=== PATIENT | female | born 1965 | race Caucasian/White ===

== ENCOUNTER 2020-10-22 18:31 | Emergency (ER) | payer MEDICARE, MEDICAID, SELFPAY ==
--- NOTE | 2020-10-22 18:43 | PC.NURSE ---
Pt arrived via EMS, cooperative w/ changeover at this time.
[2020-10-22 18:51] VITALS: BP 124/83; PULSE 84; RESP 18; TEMP 36.4; O2SAT 99; BMI 21.7
--- NOTE | 2020-10-22 20:40 | MHC.CARE ---
Addendum entered by Leticia Pedersen LCSW 10/22/20 21:13: outside machinist helper tool crib supervisor: [phone] Residential program: [phone] Addendum entered by Leticia Pedersen LCSW 10/22/20 21:11: Pt cleared for discharge. This freelance writer contacted tactical air control party manager tool crib supervisor re: transportation home. Staff unable to provide transportation at this time, however pt meets medical necessity for an ambulance transport. This freelance writer will contact [facility] with ETA once ambulance arrives for pt. Original Note: Pt is a 55 year old female who arrived by ambulance from [facility] residential [place] in [place] on a [address] [place] PD after pt called 911 endorsing passive thoughts of suicide and requesting that she be brought to the hospital. This freelance writer contacted interpretive program coordinator to inquire about pt's recent behavior and the events leading to her arriving to the ED. Annalise - tactical air control party manager tool crib supervisor for [facility] Per report, this is overall baseline behavior for pt. Often when upset pt will contact the police department to come speak with her. Pt also frequently makes statements such as I want to when she is upset or dysregulated. Prior to arrival today, pt was repeatedly asking residential home staff to bring her to the store for cigarettes. When able to, staff obliged and also took her for a short drive. Upon return, pt was reported to have asked for her PRN clonidine due to her continuing to feel upset, which was administered. Pt then called her family, which it was noted that the conversations can easily go either way with being positive or negative for the pt. On this particular evening, the conversation went poorly with both her mother and her brother, at which point pt called 911. Pt has no hx of suicide attempts, however does engage in self harm when she is dysregulated and upset (skin picking and hair pulling). Annalise did indicate that pt has seemed to be in her own head more lately, and pondered whether a change in medications should be considered. Pt is able to return to the program when she is deemed appropriate for discharge from the hospital. This freelance writer spoke with pt after her arrival to the ED. Pt reported that she was upset before she came to the hospital, however couldn't identify what made her upset. Pt confirmed that she contacted the PD and told them that she wanted to because she was upset, and that she wanted to go to the hospital. Pt is currently insisting that she doesn't want to be at the hospital anymore and wants to go back home. Pt denied feeling upset or having any thoughts of at this time, and denied thoughts of suicide. When asked about the small open areas on the back of her hand, pt stated that she scratches and picks her hand when she's upset. It is worth noting that the term upset has been used loosely during these conversations. This freelance writer spoke with ED provider re: information gathered from the residential home economist and the pt, with likely plan for pt to discharge from ED to return home.
[2020-10-22 21:02] VITALS: BP 127/81; PULSE 88; RESP 20; TEMP 36.3; O2SAT 97
--- NOTE | 2020-10-22 21:03 | ED_ITS ---
HPI - Psych General Chief Complaint: Psychiatric Symptoms Stated Complaint: SI,SECTION 12 Time Seen by Provider: 10/22/20 18:56 Source: patient and EMS Mode of arrival: EMS Limitations: no limitations History of Present Illness HPI Narrative: 55 y/o female with history of cerebral palsy, bipolar disorder, anxiety, hx UGIB in the past presents to ED from nursing home with reports of saying things I shouldn't have said. She states she was overwhelmed and was yelling at people in her nursing home. EMS states she made SI statements. Patient admits to this but states she did not mean it. She gets like this when I'm stressed. Would not elaborate on any new stressors. States medication compliance. No drug use and very occasional ETOH. No hx SI attempts in the past. Related Data Home Medications Medication Instructions Recorded Confirmed Proventil HFA QID PRN 10/22/20 atorvastatin [Lipitor] 10 mg PO BEDTIME 10/22/20 10/22/20 lorazepam 0.5 mg PO BEDTIME 10/22/20 10/22/20 lorazepam 0.5 mg PO BEDTIME PRN 10/22/20 10/22/20 pantoprazole 40 mg PO BID 10/22/20 10/22/20 quetiapine 100 mg PO TID 10/22/20 10/22/20 quetiapine 400 mg PO BID 10/22/20 10/22/20 sucralfate [Carafate] 1 g PO BID 10/22/20 10/22/20 trazodone 50 mg PO BEDTIME PRN 10/22/20 10/22/20 trazodone 100 mg PO BEDTIME 10/22/20 10/22/20 Allergies Allergy/AdvReac Type Severity Reaction Status Date / Time No Known Allergies Allergy Unverified 07/25/20 18:25 Review of Systems Review of Systems: Constitutional: No Fever, No Chills Cardiovascular: No Chest Pain, No SOB, No Orthopnea, No Edema Respiratory: No Cough, No Sputum, No Wheezing, No dyspnea Gastrointestinal: No Nausea, No Vomiting, No Diarrhea, No abdominal Pain Genitourinary: No Dysuria, No Urinary Frequency, No Hematuria Musculoskeletal: No joint pain, No Myalgias Skin: No Skin Lesions, No rash Neuro: No Weakness, No Numbness, No Dizziness, No Headache Psych: + Anxiety/Panic, No Depression, No SI/HI, No AH/VH Heme/Lymph: No Bruising PMFSH Past Medical History Medical History Anxiety Astigmatism Cerebral palsy Constipation COPD (chronic obstructive pulmonary disease) Depression Esophageal ulcer Gastritis GERD (gastroesophageal reflux disease) Hyperlipidemia Raynaud disease Scoliosis UTI (urinary tract infection) Social History Social History Advance Directives: No Advance Directives Information Provided: Yes Physical Exam Vital Signs: Vital Signs: Last Vital Signs Temp 97.3 F 10/22/20 21:02 Pulse 88 10/22/20 21:02 Resp 20 10/22/20 21:02 BP 127/81 10/22/20 21:02 Pulse Ox 97 10/22/20 21:02 Body Mass Index 21.7 Appearance: Alert. Oriented X3. No acute distress. Disheveled Eyes: Pupils equal, round and reactive to light. ENT: Normal inspection Neck: Normal inspection. Neck supple. CVS: Normal heart rate and rhythm. Pulses normal. Respiratory: No respiratory distress. Breath sounds normal. Abdomen: Soft and nontender. +BS x4 Skin: Skin warm and dry. Normal skin color. Normal skin turgor. No rashes. Extremities: No lower extremity edema. Neuro/psych: Oriented X 3. Calm, cooperative, good insight, no SI. Course Course Course Narrative: 55 y/o female presenting with SI statements at nursing home when she was under stress. She adamantly denies those statements now, has no history of the same. She has been compliant with medications and lives in [facility] housing. She has psych and medical follow up in the community. She would like to go back to her nursing home. She is not a danger to herself or others at this time. She is stable for discharge. MDM - Psych Differential Diagnosis Differential diagnosis: Likely acute psychosis, suicidal ideation, bipolar disorder, depression, acute anxiety, substance abuse, mood disorder and schizoaffective disorder Discharge Plan Discharge Clinical Impression: Acute anxiety Patient Disposition: Home, Self-Care Instructions: Stress (ED), Suicide Prevention (ED) Additional Instructions: Follow up with your medical and psychiatric providers. Take all of your medications as prescribed, no adjustments were made today while in the ER. If you develop suicidal thoughts call 911 or come back to the ER for further evaluation. Prescriptions: Continued atorvastatin [Lipitor] 10 mg Tablet 10 mg PO BEDTIME RF: 0 sucralfate [Carafate] 1 gram Tablet 1 g PO BID RF: 0 quetiapine 100 mg Tablet 100 mg PO TID RF: 0 lorazepam 0.5 mg Tablet 0.5 mg PO BEDTIME PRN (Reason: Anxiety) RF: 0 pantoprazole 40 mg Tablet,Delayed Release (Dr/Ec) 40 mg PO BID RF: 0 quetiapine 400 mg Tablet 400 mg PO BID RF: 0 trazodone 50 mg Tablet 50 mg PO BEDTIME PRN (Reason: Insomnia) RF: 0 lorazepam 0.5 mg Tablet 0.5 mg PO BEDTIME RF: 0 trazodone 100 mg Tablet 100 mg PO BEDTIME RF: 0 Proventil HFA 180 mcg QID PRN (Reason: Dyspnea) RF: 0 Interventions: ED Discharge Assessment Last Done: 10/22/20 22:19 Discharge Date/Time: 10/22/20 23:08
== END 2020-10-22 23:08 | disposition home or self-care (01) ==
PROVIDERS: Emergency Provider Internal Medicine; PCP Internal Medicine
DX: F41.1 Generalized anxiety disorder (principal); F43.0 Acute stress reaction; R45.851 Suicidal ideations; Z79.899 Other long term (current) drug therapy
CPT/HCPCS: 99284

== ENCOUNTER → 2021-01-30 08:54 | Outpatient (BNVA) | payer MEDICARE, MEDICAID, SELFPAY | PROVIDERS: PCP Internal Medicine; Referring Provider Internal Medicine; Visit Provider Internal Medicine Gastroenterology | DX: Z13.89 Encounter for screening for other disorder (principal) | CPT/HCPCS: Q3014 ==

== ENCOUNTER 2021-02-18 11:00 | Day surgery (SDC) | payer MEDICARE, MEDICAID, SELFPAY ==
--- NOTE | 2021-02-14 14:00 | P.CONAN_ITS ---
Documented by User: Leticia Perera 02/14/21 14:01 HPI - Anesthesia Eval Consult details Narrative: 55yo F for Upper Endoscopy PMFSH Active Problems Active Problems: All Active Problems (Updated 01/30/21 @ 16:46 by Emily Gardner MD) Iron deficiency anemia due to chronic blood loss (Acute) Gastritis (Acute) GERD with esophagitis (Acute) Past Medical History Medical History (Updated 02/18/21 @ 12:43 by Lana Benoit) Anxiety Astigmatism Cerebral palsy Constipation COPD (chronic obstructive pulmonary disease) Depression Esophageal ulcer Gastritis GERD (gastroesophageal reflux disease) Hyperlipidemia Raynaud disease Scoliosis UTI (urinary tract infection) Social History Social History (Updated 02/18/21 @ 12:44 by Lana Benoit) Alcohol intake: never Smoking Status: Current every day smoker Tobacco Type: Cigarette Cigarettes Per Day: 6 Smoked in Last 30 Days: Yes Use of substances other than those prescribed or required for medical reasons: No Advance Directives: Yes Advance Directives Information Provided: Yes Advance Directives on File: No Advance Directives Date on File: 02/18/21 Recently lost weight without trying: No Meds Allergies Allergy/AdvReac Type Severity Reaction Status Date / Time No Known Allergies Allergy Verified 01/30/21 08:54 Home Medications Medication Instructions Recorded Confirmed Last Taken Type lorazepam 0.5 mg PO BEDTIME 10/22/20 01/30/21 10/21/20 22:00 History lorazepam 0.5 mg PO BEDTIME PRN 10/22/20 01/30/21 10/21/20 20:00 History quetiapine 100 mg PO TID 10/22/20 01/30/21 02/18/21 History trazodone 100 mg PO BEDTIME 10/22/20 01/30/21 10/21/20 22:00 History omeprazole 20 mg capsule,delayed 20 mg PO DAILY 01/30/21 01/30/21 02/18/21 History release quetiapine 400 mg tablet 400 mg PO BEDTIME tab 01/30/21 01/30/21 Unknown History sucralfate 1 gram tablet 1 g PO QIDACHS tab 01/30/21 01/30/21 02/18/21 History Dulcolax (bisacodyl) 5 mg PO BID 02/18/21 02/18/21 Unknown History atorvastatin 1 tab PO DAILY 02/18/21 02/18/21 02/18/21 History fluticasone propionate [Flovent INHALATION 02/18/21 02/18/21 History HFA] trazodone 1 tab PO BEDTIME 02/18/21 02/18/21 Unknown History Exam Exam Date and Time: February 14, 2021 1400 Assessment and Plan Assessment Anesthesia Assessment: Chart Reviewed Documented by User: Lana Benoit 02/18/21 12:48 [facility] Past Medical History Medical History (Updated 02/18/21 @ 12:43 by Lana Benoit) Anxiety Astigmatism Cerebral palsy Constipation COPD (chronic obstructive pulmonary disease) Depression Esophageal ulcer Gastritis GERD (gastroesophageal reflux disease) Hyperlipidemia Raynaud disease Scoliosis UTI (urinary tract infection) Family History Family history of problems with anesthesia: No Surgical History History of Problems with Anesthesia: No Social History Social History (Updated 02/18/21 @ 12:44 by Lana Benoit) Alcohol intake: never Smoking Status: Current every day smoker Tobacco Type: Cigarette Cigarettes Per Day: 6 Smoked in Last 30 Days: Yes Use of substances other than those prescribed or required for medical reasons: No Advance Directives: Yes Advance Directives Information Provided: Yes Advance Directives on File: No Advance Directives Date on File: 02/18/21 Recently lost weight without trying: No Meds Allergies Allergy/AdvReac Type Severity Reaction Status Date / Time No Known Allergies Allergy Verified 01/30/21 08:54 Home Medications Medication Instructions Recorded Confirmed Last Taken Type lorazepam 0.5 mg PO BEDTIME 10/22/20 01/30/21 10/21/20 22:00 History lorazepam 0.5 mg PO BEDTIME PRN 10/22/20 01/30/21 10/21/20 20:00 History quetiapine 100 mg PO TID 10/22/20 01/30/21 02/18/21 History trazodone 100 mg PO BEDTIME 10/22/20 01/30/21 10/21/20 22:00 History omeprazole 20 mg capsule,delayed 20 mg PO DAILY 01/30/21 01/30/21 02/18/21 History release quetiapine 400 mg tablet 400 mg PO BEDTIME tab 01/30/21 01/30/21 Unknown History sucralfate 1 gram tablet 1 g PO QIDACHS tab 01/30/21 01/30/21 02/18/21 History Dulcolax (bisacodyl) 5 mg PO BID 02/18/21 02/18/21 Unknown History atorvastatin 1 tab PO DAILY 02/18/21 02/18/21 02/18/21 History fluticasone propionate [Flovent INHALATION 02/18/21 02/18/21 History HFA] trazodone 1 tab PO BEDTIME 02/18/21 02/18/21 Unknown History Exam Height,Weight and Vital Signs: Vital Signs Temp Pulse Resp BP Pulse Ox 02/18/21 11:53 97.9 F 71 16 99/66 95 Airway Mallampati Class: II (Small mouth) TM Dist: >3cm Neck ROM: Full Heart: RRR Lungs: CTAB Assessment and Plan Assessment Anesthesia Assessment: Anesthesia Plan Discussed and Chart Reviewed Final Anesthetic Review NPO: Yes ASA Class: II Final Preanesthetic Review: No Changes in Pt Med Stat, Meds/Allgs Chart Reviewed, Consent Obtained/Reviewed and Anes Risks/Benef Reviewed Patient Risk: Low Procedure Risk: Low Assessment/Block/Sedation in SS: Assess/Block/Sedation-SS Anesthetic Plan Anesthetic Plan: MAC: Disposition: Standard PACU
[2021-02-18] VITALS (8 sets, daily range): BP systolic 85–99; BP diastolic 39–66; PULSE 67–80; RESP 12–18; TEMP 36.6; O2SAT 93–96; BMI 22.3
[2021-02-18] MEDS: Lactated Ringers 1,000 ML 100 ML IVCONT (12:37)
--- NOTE | 2021-02-18 12:52 | P.OP_ITS ---
Operative Note Operative Note Date of Service: 02/18/21 Narrative: Pre-op diagnosis: GERD, follow-up of Harris's Post-op diagnosis: other (GERD, Harris's esophagus) Procedure: FLEXIBLE TRANSORAL UPPER GASTROINTESTINAL ENDOSCOPY WITH BIOPSIES Consent: Indications for the procedure and potential complications of bleeding, perforation, reaction to medications and missed diagnosis were discussed with the patient and informed consent was obtained. Instrument: Olympus GIF H 190 mid size upper endoscope Monitoring: Vital signs and clinical assessment, continuous EKG monitoring, Pulse oximetry, Carbon Dioxide monitoring and blood pressure monitoring were done throughout the procedure. Procedure: The patient was placed in the left lateral decubitis position and pre-procedure medications were administered and a bite block was placed. The endoscope was inserted into the mouth and advanced under direct vision to the third part of duodenum. A careful inspection was made as the upper endoscope was withdrawn including a retroflexed examination of the proximal stomach; Findings and interventions are described below. Findings: Larynx: Normal Esophagus: GE junction at 35 cms, small hiatal hernia 35 to 37 cms. Two 1-2 cms tongues of Harris's - multiple biopsies were obtained Stomach: Mild gastric erythema and a few 2-4 mm benign appearing polyps in the gastric fundus and body. Biopsied during past EGD. Grade 2 flap valve on retroflexed examination of the cardia. Duodenum: Normal bulb and descending duodenum Intervention: Biopsies as noted above Impression and Post Procedure Diagnosis: Endoscopy Findings: ESOPHAGUS: GE junction at 35 cms, small hiatal hernia 35 to 37 cms. 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 Biopsied during past EGD Plan: Await pathology results Patient has an appointment on 04/03/21 in the GI Clinic with Emily Gardner M.D.- . Above findings were reviewed with the patient and [GERD] and [Gastritis] handouts were given in the discharge area Surgeon: Emily Gardner MD Anesthesia: MAC (Edel Castellon CRNA) Paraprofessional Education Assistant: Maynor Jeffers Estimated blood loss (mL): 0 Pathology: other (A. Distal esophagus) Condition: stable Disposition: PACU
--- NOTE | 2021-02-18 12:52 | MHC.SHP ---
Pre-Procedural Eval Section A The patient is an INPATIENT: No Changes since office visit: Yes Patient answered all questions; No Cold of Flu in the past 2 weeks, No New Medical Problems and No Changes in Medication The History & Physical has been completed within 30 days and I have reviewed it.: Yes Section B Chief Complaint: Esophagitis Allergies: Allergies Allergy/AdvReac Type Severity Reaction Status Date / Time No Known Allergies Allergy Verified 01/30/21 08:54 Exam Surgical H&P Exam: Normal: Heart, Normal: Lungs, Normal: Extremities and Normal: Abdomen Plan Diagnosis/Plan: Unchanged I have reviewed the history and physical and performed a pertinent physical examination on my patient. No changes have occurred unless specified.
== END 2021-02-18 14:54 | disposition home or self-care (01) ==
PROVIDERS: PCP Internal Medicine; Visit Provider Internal Medicine Gastroenterology
PROC: 0DJ08ZZ Inspection of Upper Intestinal Tract, Via Natural or Artificial Opening Endoscopic (ICD-10-PCS; CPT 43235; principal; 2021-02-18 12:20)
DX: K21.9 Gastro-esophageal reflux disease without esophagitis (principal); K22.70 Barrett's esophagus without dysplasia; K31.7 Polyp of stomach and duodenum; K44.9 Diaphragmatic hernia without obstruction or gangrene; G80.9 Cerebral palsy, unspecified; F32.9 Major depressive disorder, single episode, unspecified; J44.9 Chronic obstructive pulmonary disease, unspecified; I73.00 Raynaud's syndrome without gangrene; Z79.899 Other long term (current) drug therapy; F17.210 Nicotine dependence, cigarettes, uncomplicated
CPT/HCPCS: 43239; 88305; J2405; J2765; J3010

== ENCOUNTER → 2021-05-01 14:12 | Outpatient (BNVA) | payer MEDICARE, MEDICAID, SELFPAY | PROVIDERS: PCP Internal Medicine; Referring Provider Internal Medicine; Visit Provider Internal Medicine Gastroenterology | DX: D50.0 Iron deficiency anemia secondary to blood loss (chronic) (principal); K29.70 Gastritis, unspecified, without bleeding; K21.00 Gastro-esophageal reflux disease with esophagitis, without bleeding | CPT/HCPCS: 99212 ==

== ENCOUNTER 2022-10-15 09:43 | Outpatient (REF) | payer MEDICARE, MEDICAID, SELFPAY ==
[2022-10-15 10:00] LABS: MANUAL DIFF FLAG NO
[2022-10-15 10:35] LABS: Basophils Percent Auto 0.5 % (0-2); Eosinophils Absolute Auto 0.1 X10*3/uL (0.0-0.4); Eosinophils Percent Auto 2.4 % (0-4); Hematocrit 35.4 % (37.0-47.0); Hemoglobin 11.9 g/dl (12.0-16.0); Imm Gran Abs Auto 0.02 X10*3/uL (0.00-0.03); Imm Gran Pct Auto 0.3 % (0.0-0.4); Lymphocytes Absolute Auto 1.6 X10*3/uL (1.2-4.9); Lymphocytes Percent Auto 27.4 % (20-40); Mean Corpuscular HGB Conc 33.6 g/dl (31.0-35.0); Mean Corpuscular Hemoglobin 32.8 pg (27.0-33.0); Mean Corpuscular Volume 97.5 fL (80.0-98.0); Mean Platelet Volume 9.1 fL (9.4-12.3); Monocytes Absolute Auto 0.3 X10*3/uL (0.1-1.2); Monocytes Percent Auto 5.2 % (2-11); Neutrophils Absolute Auto 3.7 x10*3/uL (2.0-8.3); Neutrophils Percent Auto 64.2 % (45-73); Platelet Count 256 X10*3/uL (160-400); Red Blood Count 3.63 X10*6/uL (4.20-5.50); Red Cell Distribution Width 12.7 % (11.0-16.0); White Blood Count 5.7 X10*3/uL (4.8-10.8)
[2022-10-15 12:01] LABS: Alanine Aminotransferase 20 U/L (0-31); Alkaline Phosphatase 86 U/L (39-117); Anion Gap 11 (12-20); Aspartate Amino Transferase 18 U/L (5-31); Bilirubin Total 0.3 mg/dL (0.0-1.0); Blood Urea Nitrogen 14 mg/dL (9-16); Calcium 9.7 mg/dL (8.4-10.2); Carbon Dioxide 26 mmol/L (22-29); Chloride 107 mmol/L (96-108); Estimated Glomerular Filt Rate > 60; Glucose Random 94 mg/dL (60-115); Sodium 140 mmol/L (135-145); Total Protein 6.8 g/dL (6.5-8.0); Vitamin D 25-OH Total 20.1 ng/mL (>30)
[2022-10-15 12:16] LABS: Vitamin B12 389 pg/mL (200-900)
[2022-10-15 12:19] LABS: Folate 9.2 ng/mL (> or = 4.0)
== END 2022-10-15 09:44 | disposition home or self-care (01) ==
LOC: HO.LAB 09:43
PROVIDERS: PCP Internal Medicine; Visit Provider Internal Medicine Gastroenterology
DX: D50.0 Iron deficiency anemia secondary to blood loss (chronic) (principal); K29.70 Gastritis, unspecified, without bleeding; K21.00 Gastro-esophageal reflux disease with esophagitis, without bleeding
CPT/HCPCS: 36415; 80053; 82306; 82607; 82746; 85025; 99212

== ENCOUNTER 2023-04-22 10:49 | Outpatient (REF) | payer MEDICARE, MEDICAID, SELFPAY ==
[2023-04-22 12:10] LABS: Hematocrit 35.1 % (37.0-47.0); Hemoglobin 11.9 g/dl (12.0-16.0); Mean Corpuscular HGB Conc 33.9 g/dl (31.0-35.0); Mean Corpuscular Hemoglobin 33.3 pg (27.0-33.0); Mean Corpuscular Volume 98.3 fL (80.0-98.0); Platelet Count 258 X10*3/uL (160-400); Red Blood Count 3.57 X10*6/uL (4.20-5.50); Red Cell Distribution Width 12.7 % (11.0-16.0); White Blood Count 5.6 X10*3/uL (4.8-10.8)
[2023-04-22 13:19] LABS: Vitamin D 25-OH Total 47.9 ng/mL (>30)
== END 2023-04-22 10:50 | disposition home or self-care (01) ==
LOC: CF 10:49
PROVIDERS: PCP Internal Medicine; Visit Provider Internal Medicine Gastroenterology
DX: K21.00 Gastro-esophageal reflux disease with esophagitis, without bleeding (principal); K29.70 Gastritis, unspecified, without bleeding; D50.0 Iron deficiency anemia secondary to blood loss (chronic); E55.9 Vitamin D deficiency, unspecified
CPT/HCPCS: 36415; 82306; 85027; 99212

== ENCOUNTER 2023-10-21 11:25 | Outpatient (AMB) | payer MEDICARE, MEDICAID, SELFPAY ==
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
[2023-10-21 11:43] VITALS: BP 93/59; PULSE 76; BMI 24.0
== END 2023-10-21 12:01 | disposition home or self-care (01) ==
PROVIDERS: PCP Internal Medicine; Visit Provider Internal Medicine Gastroenterology
DX: E55.9 Vitamin D deficiency, unspecified (principal); Z12.11 Encounter for screening for malignant neoplasm of colon; D50.0 Iron deficiency anemia secondary to blood loss (chronic); K21.00 Gastro-esophageal reflux disease with esophagitis, without bleeding
CPT/HCPCS: 99213

== ENCOUNTER → 2023-10-21 11:25 | Outpatient (BNVA) | payer MEDICARE, MEDICAID, SELFPAY | PROVIDERS: PCP Internal Medicine; Visit Provider Internal Medicine Gastroenterology | DX: Z12.11 Encounter for screening for malignant neoplasm of colon (principal); E55.9 Vitamin D deficiency, unspecified; D50.0 Iron deficiency anemia secondary to blood loss (chronic); K21.00 Gastro-esophageal reflux disease with esophagitis, without bleeding | CPT/HCPCS: 99212 ==

== ENCOUNTER 2024-04-27 10:59 | Outpatient (AMB) | payer MEDICARE, MEDICAID, SELFPAY ==
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
[2024-04-27 11:07] VITALS: BP 90/58; PULSE 64; O2SAT 97; BMI 22.3
== END 2024-04-27 12:09 | disposition home or self-care (01) ==
PROVIDERS: PCP Internal Medicine; Visit Provider Internal Medicine Gastroenterology
DX: K21.00 Gastro-esophageal reflux disease with esophagitis, without bleeding (principal); K29.70 Gastritis, unspecified, without bleeding; D50.0 Iron deficiency anemia secondary to blood loss (chronic); Z12.11 Encounter for screening for malignant neoplasm of colon
CPT/HCPCS: 99213

== ENCOUNTER 2024-04-27 10:59 | Outpatient (REF) | payer MEDICARE, MEDICAID, SELFPAY ==
[2024-04-27 12:59] LABS: Hematocrit 36.2 % (37.0-47.0); Hemoglobin 12.6 g/dl (12.0-16.0); Mean Corpuscular HGB Conc 34.8 g/dl (31.0-35.0); Mean Corpuscular Hemoglobin 33.4 pg (27.0-33.0); Platelet Count 229 X10*3/uL (160-400); Red Blood Count 3.77 X10*6/uL (4.20-5.50); Red Cell Distribution Width 13.4 % (11.0-16.0); White Blood Count 4.3 X10*3/uL (4.8-10.8)
[2024-04-27 14:02] LABS: Ferritin 23 ng/mL (10-250)
== END 2024-04-27 11:00 | disposition home or self-care (01) ==
LOC: HO.LAB 10:59
PROVIDERS: PCP Internal Medicine; Visit Provider Internal Medicine Gastroenterology
DX: K21.00 Gastro-esophageal reflux disease with esophagitis, without bleeding (principal); K29.70 Gastritis, unspecified, without bleeding; D50.0 Iron deficiency anemia secondary to blood loss (chronic)
CPT/HCPCS: 36415; 82728; 85027; 99212

== ENCOUNTER 2024-10-19 13:27 | Outpatient (AMB) | payer MEDICARE, MEDICAID, SELFPAY ==
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
[2024-10-19 13:58] VITALS: BP 95/56; PULSE 77; BMI 24.7
== END 2024-10-19 16:14 | disposition home or self-care (01) ==
LOC: HO.HGI 13:27
PROVIDERS: PCP Internal Medicine; Visit Provider Internal Medicine Gastroenterology
DX: K21.00 Gastro-esophageal reflux disease with esophagitis, without bleeding (principal); K29.70 Gastritis, unspecified, without bleeding; D50.0 Iron deficiency anemia secondary to blood loss (chronic); Z12.11 Encounter for screening for malignant neoplasm of colon; E55.9 Vitamin D deficiency, unspecified; K59.09 Other constipation
CPT/HCPCS: 99213

== ENCOUNTER → 2024-10-19 13:27 | Outpatient (BNVA) | payer MEDICARE, MEDICAID, SELFPAY | PROVIDERS: PCP Internal Medicine; Visit Provider Internal Medicine Gastroenterology | DX: Z12.11 Encounter for screening for malignant neoplasm of colon (principal); K21.00 Gastro-esophageal reflux disease with esophagitis, without bleeding; K29.70 Gastritis, unspecified, without bleeding; K59.09 Other constipation; E55.9 Vitamin D deficiency, unspecified; D50.0 Iron deficiency anemia secondary to blood loss (chronic) | CPT/HCPCS: 99212 ==